=== PATIENT | female | born 1960 | race African-American/Black ===

== ENCOUNTER 2017-04-21 15:37 | Outpatient (CLI) | payer OTHER ==
[2017-04-21 17:03] LABS: Hematocrit 34.5 % (36.0-47.0); Mean Platelet Volume 7.7 fL (7.4-10.4); Red Blood Cell (RBC) Count 3.87 mill/uL (4.20-5.40); White Blood Cell (WBC) Count 5.5 thou/uL (4.8-10.8)
[2017-04-21 17:09] LABS: PTT 28.7 SEC (22.9-36.1); Prothrombin Time 13.1 SEC (12.0-14.7)
--- NOTE | 2017-04-27 08:32 | EKG ---
Test Reason : Blood Pressure : / mmHG Vent. Rate : 075 BPM Atrial Rate : 075 BPM P-R Int : 150 ms QRS Dur : 086 ms QT Int : 392 ms P-R-T Axes : 067 056 084 degrees QTc Int : 437 ms Normal sinus rhythm Normal ECG No previous ECGs available Confirmed by Ashely IVY ([id number]) on 04/27/2017 8:32:23 AM Referred By: ROOSEVELT Confirmed By:Ashely IVY
== END 2017-04-21 15:38 | disposition home or self-care (01) ==
LOC: LABBT 15:37
PROVIDERS: ATTEND Neurological Surgery
DX: Z01.812 Encounter for preprocedural laboratory examination (principal); M43.16 Spondylolisthesis, lumbar region; M47.816 Spondylosis without myelopathy or radiculopathy, lumbar region
CPT/HCPCS: 85027; 85610; 85730

== ENCOUNTER 2017-04-21 16:30 | Inpatient (IN) | payer OTHER ==
--- NOTE | 2017-04-16 14:17 | HP ---
HISTORY OF PRESENT ILLNESS: Ms. Stokes is a 57-year-old female, who presents with a history of 6 months of pain, numbness, and tingling in the L5 dermatome on the left. She has had tingling, throbbing pain that has gotten worse over time. The pain is also tender in the left SI joint on palpation. Pain is made worse with sitting, lying down and is made slightly better with some meloxicam and Tylenol. She has had several rounds of physical therapy and has had [address] Corbett that has failed to give permanent relief. The majority of her pain is in her legs and her back and is recreated by rolling over in bed and when going from sit to stand. MRI lumbar without contrast [facility], on CD. REVIEW OF SYSTEMS: Ten-point review of systems complete is otherwise negative unless stated in the above HPI. PAST MEDICAL HISTORY: Sciatica. PAST SURGICAL HISTORY: Hysterectomy at age 41. HOSPITALIZATIONS: For surgery only. FAMILY HISTORY: Father is alive, diagnosed with hypertension. Mother is alive , diagnosed with hypertension. Siblings are alive and also have hypertension. SOCIAL HISTORY: The patient is a nonsmoker. She is a teacher. She is and has 2 children. MEDICATIONS: Taking duloxetine HCL 60 mg capsule, delay release particles, 1 capsule orally once a day, meloxicam 7.5 mg tablet 1 tablet orally once a day, Tylenol No.3 300/30 tablet 1 or 2 tablet by mouth q. 4-6 hours p.r.n., and lisinopril/hydrochlorothiazide 20/12.5 mg tablet 1 tablet orally once a day. ALLERGIES: No known drug allergies. PHYSICAL EXAMINATION: HEENT: Normocephalic, atraumatic. Hearing intact. Moist mucous membranes. Trachea is midline. Eyes: Pupils are equal and reactive to light. Extraocular muscles are intact. Sclerae is white, nonicteric. PSYCHIATRIC: Normal mood and affect. CARDIOVASCULAR/CARDIOPULMONARY: No cyanosis or clubbing noted. Intact pedal pulses bilaterally. MUSCULOSKELETAL: Lower extremity, 5/5 strength in bilateral iliopsoas, quadriceps, hamstrings, right tibialis anterior and extensor hallucis longus. Sensory deficits in the left L5 dermatome tender to palpation on the midline lumbar spine. RESPIRATORY: Even respirations, good effort all lung bobby sound clear with no wheezing or crackles. NEUROLOGIC: Cranial nerves II through XII are grossly intact. Speech is fluent. Answers my questions appropriately. She has an antalgic gait and station. ASSESSMENT: Spondylolisthesis lumbosacral region. PLAN: Pain refractory to injections, therapy, activity modifications, and medication. Dr. Urrutia offered to decompress the L5 root on the left and diffused and fused L5-S1. Informed consent was given. We discussed the indications, risks, benefits, alternatives, and expected results from surgery. The patient is well aware of risks and is willing to proceed with the surgery. On imaging, flexion, extension showed some motion at L5-S1. CT showed arthropathy at L5-S1. Rest of this in facets are normal. MRI slip at L5-S1 and normal other interspaces. MTDD
[2017-04-22] MEDS ORDERED: Sodium Chloride 0.9% 20 ML ONE (06:19)
[2017-04-22] MEDS ORDERED: Bupivacaine/Epinephrine 0.25% 30 ML VIAL ONE (06:19)
[2017-04-22] MEDS ORDERED: Thrombin 5000 UNITS/5 ML VIAL ONE (06:20)
[2017-04-22] MEDS ORDERED: Albumin 5% 500 ML ONE (06:21)
[2017-04-22] MEDS ORDERED: Phenylephrine 10 MG/NS 250 ML 0 ML ONE (06:21)
[2017-04-22] MEDS ORDERED: Fentanyl 250 MCG/5 ML VIAL ONE (06:40)
[2017-04-22] MEDS ORDERED: CEFAZOLIN/Water 2 GM/20 ML SYRINGE ONE (06:40)
[2017-04-22] MEDS ORDERED: Midazolam HCl 2 mg/2 ml Vial ONE (06:55)
[2017-04-22 06:57] LABS: Anion Gap 12 mmol/L (10-20); BUN (Urea Nitrogen) 14 mg/dL (9.8-20.1); Calc. Creatinine Clearance 62 mL/min (70-130); Carbon Dioxide 28 mmol/L (22-29); Chloride 103 mmol/L (98-107); Estimated GFR-MDRD 73
[2017-04-22] MEDS ORDERED: Glycopyrrolate 0.2 MG/ML 5 ML SYRINGE ONE (07:07)
[2017-04-22] MEDS ORDERED: Ondansetron HCl/PF 4 MG/2 ML Vial ONE ×3 (07:07→10:05)
[2017-04-22] MEDS ORDERED: Propofol 200 MG/20 ML VIAL ONE ×2 (07:07)
[2017-04-22] MEDS ORDERED: Dexamethasone 20 MG/5 ML VIAL ONE (07:07)
[2017-04-22] MEDS ORDERED: Lidocaine 2% PF 10 ML AMP (For Epidural Use) ONE (07:07)
[2017-04-22] MEDS ORDERED: Succinylcholine Chloride 20 MG/ML 10 ml SYRINGE FS ONE (07:07)
[2017-04-22] MEDS ORDERED: Vecuronium 10 MG VIAL ONE (07:07)
[2017-04-22] MEDS ORDERED: PHENYLEPHRINE-NS 100 MCG/ML 10 ML SYRINGE ONE (07:07)
[2017-04-22] MEDS ORDERED: Morphine 4 MG/ML VIAL SLOW IVP PRN ×2 (10:57)
[2017-04-22] MEDS ORDERED: Ondansetron HCl/PF 4 MG/2 ML Vial IVP PRN ×2 (10:57→11:21)
[2017-04-22] MEDS ORDERED: Acetaminophen/Codeine 30-300mg Tablet PO PRN ×2 (10:57→10:59)
[2017-04-22] MEDS ORDERED: Meperidine HCl/PF 25 MG/ML VIAL SLOW IVP PRN (11:21)
[2017-04-22] MEDS ORDERED: HYDROmorphone 2 MG/ML VIAL SLOW IVP PRN (11:21)
[2017-04-22] MEDS ORDERED: Promethazine HCl 25 MG/ML VIAL SLOW IVP PRN (11:21)
[2017-04-22] MEDS ORDERED: Promethazine HCl 25 MG/ML VIAL IM PRN (11:21)
[2017-04-22] MEDS ORDERED: Morphine Sulfate 2 MG/ML SYRINGE SLOW IVP PRN (11:21)
[2017-04-22] MEDS ORDERED: Fentanyl 100 MCG/2 ML VIAL ONE (11:32)
[2017-04-22] MEDS: Sodium Chloride 0.9% 1,000 ML IV SCH (12:13)
--- NOTE | 2017-04-22 13:00 | OP ---
DATE OF PROCEDURE: 04/22/2017 SURGEON: Ap Urrutia M.D. DESPATCH CLERK: Chato Grayson PA-C. PREOPERATIVE INDICATION: Treat pain, prevent neurological deterioration. PREOPERATIVE DIAGNOSES: Left L5 radiculopathy from L5-S1 spondylolisthesis, L5-S1 instability and L5 -S1 foraminal stenosis. POSTOPERATIVE DIAGNOSES: Left L5 radiculopathy from L5-S1 spondylolisthesis, L5-S1 instability and L 5-S1 foraminal stenosis. OPERATIVE PROCEDURE: Decompressive laminectomy, complete facetectomy, removal of abnormal facet join ts, wide foraminotomy and decompression of the L5 nerve roots bilaterally. Transforaminal lumbar int erbody arthrodesis L5-S1. Pedicle screw and jefferson instrumentation L5-S1. Posterolateral arthrodesis L 5 and S1. Placement of intervertebral biomechanical device L5-S1. Local morselized autograft, giang lized allograft. PREOPERATIVE MEDICATION: Ancef 2 grams IV. DRAIN NUMBER: Zero. DRAIN TYPE: None. OPERATIVE DICTATION: The patient was brought to the operating room. General endotracheal anesthesia was induced. The patient was positioned prone on the operating table with his chest and hips suppor hari by the appropriate attachments for the Socrates frame. Lateral fluoro radiograph was used to plan our incision. The lumbar skin was sterilely prepped and draped. We opened with a 10 blade knife, sherif jacobs controlled bleeding with bipolar and monopolar cautery. We used monopolar cautery to dissect throu gh the subcutaneous tissues to the thoracodorsal fascia. We incised the fascia in the midline and re flected the paraspinal muscles off the spinous process and lamina of L4, L5, and S1. A self-retainin g retractor was placed and a lateral fluoro radiograph confirmed the level which we were operating. We then carried our dissection over the L4-5 facet joints and L5-S1 facet joints to expose the transv erse processes of L5 and the sacral ala bilaterally. I then used Kerrison and Adson rongeurs where sherif jacobs performed a laminectomy at L5, we removed the abnormal facet joints at L5-S1 on both sides. We wid esau decompressed the neural foramina and visualized the exiting nerve root and traversing S1 nerve ro ots on both sides. Then, through the wide foraminotomy on the left side, we accessed the interverteb ral space. We gently retracted the S1 nerve root medially. We incised the disk space and removed di sk contents using curettes and rongeurs. With a rectangular shaped bone rasp, we measured the height of the interspace to 11 mm. We prepared the endplates for grafting with curets. We brought an 11 m m PEEK graft into the field. Our laminectomy, facetectomy bone was carefully cleaned of all soft [place] attachments and morselized into demineralized bone matrix as our fusion substrate. The substrate was placed in the center of our intervertebral graft and the graft was advanced under radiographic g uidance to the appropriate depth at the L5-S1 interspace. We turned our attention to pedicle screw i nstrumentation. Using bony anatomic landmarks, palpation of the medial portion of the pedicles, and a lateral fluoro radiograph as a guide, we chose entry points for pedicle screws at L5 and S1 bilaterally. We drilled latter entry points and I used a bone awl to create our trajectories through the pedicles and then t apped these trajectories with a tap. We probed the trajectories and found them completely encased in bone. We placed 6.5 mm diameter screws at L5 and S1 bilaterally. A 360 degree image set was genera hari with our Isocentric C-arm confirming adequate positioning of our pedicle screw instrumentation. We then irrigated with bacitracin irrigation. We placed rods into the screw heads and tightened caps over the rods. Using a umblvy-mzfhsid-hoswix mechanism, we ensured adequate tightness. We used gen tle compression across the interspace to keep our interbody graft in place. We probed with a Medrano ball probe through the L5 foramina and these were widely patent with enough room for the exiting nerv e roots. We turned our attention to posterolateral arthrodesis. We decorticated the transverse proc ess of L5 and the sacral ala bilaterally and over the decorticated bone we left demineralized bone ma trix and morselized autograft. We irrigated the center in the incision. We infused local anesthetic in the paraspinal muscles. We treated the wound with vancomycin powder. We closed in anatomic laye rs and we applied a sterile dressing. This was a clean case and no contamination.
[2017-04-22] MEDS: Acetaminophen/Codeine 30-300mg Tablet PO PRN ×3 (13:22→21:42)
[2017-04-22] MEDS: CEFAZOLIN/Water 2 GM/20 ML SYRINGE SLOW IVP SCH ×2 (13:25→21:01)
[2017-04-22] MEDS: Cyclobenzaprine 10 MG TAB PO PRN (18:38)
[2017-04-23] MEDS: Sodium Chloride 0.9% 1,000 ML IV SCH ×2 (00:33→13:53)
[2017-04-23] MEDS: Acetaminophen/Codeine 30-300mg Tablet PO PRN ×3 (01:32→13:56)
--- NOTE | 2017-04-23 07:25 | PRG ---
DATE OF SERVICE: 04/23/2017 Ms. Stokes is 1 day out from decompression fusion lumbar spine. She has spondylolisthesis at L5-S1 an d a left-sided L5 radiculopathy due to foraminal disease there. A typical night before surgery shoul d constant, radiating pain down the left leg. The pain is gone. The back is sore. She is pleased w ith the results of her operation. She was fitted with a brace yesterday. My plan this morning is to mobilize Ms. Stokes. She can put on and take off her brace. I would like it on when she is up and out of bed. If she is able to perform all activities of daily living safely , we can look for discharge later this afternoon, but more likely tomorrow morning.
[2017-04-23] MEDS: Lisinopril/Hydrochlorothiazide 10 mg/12.5 mg Tablet PO SCH (09:51)
--- NOTE | 2017-04-23 13:37 | PRG ---
DATE OF SERVICE: 04/23/2017 Ms. Stokes is a 57-year-old female that is 1 day out from a decompression and fusion at the [facility]. The pain in her legs is gone this morning. So far she is pleased with the results of the ope ration, she has been fitted with an LSO brace. She is to wear the LSO brace when upright and ambulat ing. She is able to tolerate a regular diet. Her pain is well controlled with pain medication. Ms. Stokes would like to be discharged early tomorrow morning. We will have her work with physical thera py today and ambulate as many times as possible. There are no new neurologic deficits on exam and se nsory and motor exam, there are no acute findings in the upper and lower extremities bilaterally. Vital signs have been stable overnight, slightly hypotensive at blood pressure 92/59. She is glad sh e had the operation and we will work with physical therapy and plan for discharge tomorrow. If there are any further questions, please feel free to contact Neurosurgery.
[2017-04-23] MEDS: Cyclobenzaprine 10 MG TAB PO PRN (13:56)
[2017-04-23] MEDS: Acetaminophen 325 MG TAB PO PRN ×2 (17:39→23:48)
[2017-04-24] MEDS: Sodium Chloride 0.9% 1,000 ML IV SCH ×2 (03:18→14:32)
[2017-04-24] MEDS: Lisinopril/Hydrochlorothiazide 10 mg/12.5 mg Tablet PO SCH (08:18)
[2017-04-24 11:28] LABS: Bilirubin Negative (Negative); Blood, Urine Negative (Negative); Glucose, Urine (Dipstick) Negative (Negative); Ketone, Urine Negative (Negative); Nitrite Negative (Negative); Protein, Urine (Dipstick) Negative (Neg-Trace); Urobilinogen 0.2 mg/dL (0.2-1.0)
[2017-04-24 11:33] LABS: Bacteria/HPF None Seen HPF (None Seen); Hyaline Casts/LPF 0-3 HYALINE CAST LPF (0-3 Hyaline); RBC/HPF 0-3 HPF (0-3); Squamous Epithelial 0-3 HPF (0-3); WBC/HPF 0-3 HPF (0-3)
[2017-04-24] MEDS: Acetaminophen 325 MG TAB PO PRN (14:36)
--- NOTE | 2017-04-24 14:43 | PRG ---
DATE OF SERVICE: 04/24/2017 I saw Ms. Stokes this morning. She is 2 days out from decompression and fusion of lumbar spine. She ambulated yesterday. She made 2 lapses around the entire third floor and felt pretty good doing it. She had a bit of a fever overnight, worked on , so the fever curve came down. I think Ms. Stokes is ready for discharge. We will get a urinalysis and a urine culture to be sure we are not missing urinary tract infection, and if that is clean, we will arrange discharge today. Fol lowup arrangements have been made and I went over home going activity restrictions and followup arrdeandre perez.
[2017-04-24 17:24] VITALS: BP 99/66; TEMP 98.4
== END 2017-04-24 17:59 | disposition home or self-care (01) | DRG 460 ==
LOC: SURG A 04-22 06:01 → SURG B 04-22 12:02
PROVIDERS: ADMIT Neurological Surgery; ATTEND Neurological Surgery
PROC: 0SG30AJ Fusion of Lumbosacral Joint with Interbody Fusion Device, Posterior Approach, Anterior Column, Open Approach (ICD-10-PCS; principal; 2017-04-22)
PROC: 0SB20ZZ Excision of Lumbar Vertebral Disc, Open Approach (ICD-10-PCS; 2017-04-22)
PROC: 01NB0ZZ Release Lumbar Nerve, Open Approach (ICD-10-PCS; 2017-04-22)
PROC: 8E0WXBF Computer Assisted Procedure of Trunk Region, With Fluoroscopy (ICD-10-PCS; 2017-04-22)
DX: M43.16 Spondylolisthesis, lumbar region (principal); M48.07 Spinal stenosis, lumbosacral region; Z82.49 Family history of ischemic heart disease and other diseases of the circulatory system
CPT/HCPCS: 76001; 80048; 81001; 85027; 85610; 85730; 87086; 93005; 93010; A4216; C1713; C1768; G8978-GP-CI; G8979-GP-CI; G8980-GP-CI; J0131; J1100; J2001; J2250; J2405; J2704; J3010; J3370; J3490; P9045